=== PATIENT | male | born 1950 | race Caucasian/White ===

== ENCOUNTER 2020-09-25 15:40 | Emergency (ER) | payer MEDICARE, MEDICAID ==
[~2020-09-25] VITALS: Ht 175.3 cm; Wt 109.1 kg
--- NOTE | 2020-09-25 15:51 | NUR ---
PT BROUGHT BACK TO ROOM VIA WC. USES CANE FOR AMBULATION.
[2020-09-25 16:13] VITALS: BP 208/100
--- NOTE | 2020-09-25 16:14 | NUR ---
PT PRESENTS TO ED WITH C/O BP RELATED TO A MECHANICAL INJURY THAT HAPPENED 30 YEARS AGO. PT STATES THEY WERE TREATED AT [facility] 1 MONTH AGO, STATES THEY WERE GIVEN PAIN MEDICATION FOR "SLIPPED DIS". PT STATES PAIN IS SHOOTING WHEN LAYING DOWN. PT A&O, RESPS EVEN AND UNLABORED, VSS, NADN. CALL LIGHT IN REACH, NO COMPLAINTS AT THIS TIME. Addendum: 09/25/20 at 1622 by KEVIN PT PRESENTS TO ED WITH C/O BACK PAIN RELATED TO A MECHANICAL INJURY THAT HAPPENED 30 YEARS AGO. PT STATES THEY WERE TREATED AT [facility] 1 MONTH AGO, STATES THEY WERE GIVEN PAIN MEDICATION FOR "SLIPPED DISC". PT STATES PAIN IS "SHOOTING WHEN LAYING DOWN". PT A&O, RESPS EVEN AND UNLABORED, VSS, NADN. CALL LIGHT IN REACH, NO COMPLAINTS AT THIS TIME.
--- NOTE | 2020-09-25 16:30 | NUR ---
AIDA AHUMADA AT BEDSIDE FOR EVAL.
--- NOTE | 2020-09-25 16:52 | NUR ---
DISCHARGE INSTRUCTIONS REVIEWED, PT VERBALIZED UNDERSTANDING, AMBULATORY TO DISCHARGE WITH STEADY GAIT, NO COMPLAINTS AT TIME OF DISCHARGE.
== END 2020-09-25 16:55 | disposition home or self-care (01) ==
LOC: ED 16:48
DX: B02.9 Zoster without complications (principal); I10 Essential (primary) hypertension
CPT/HCPCS: 99283

== ENCOUNTER 2020-11-01 14:53 | Emergency (ER) | payer MEDICAID, MEDICARE ==
[~2020-11-01] VITALS: Ht 175.3 cm; Wt 102.3 kg
[~2020-11-01 14:53] MED LIST: ACYC-57 PO; ASPI81TA45 PO; ATOR-2 PO; CARV12.52 PO; LOSA100T14 PO; LOSA50TA2 PO; METF500T27 PO; NAPR-685 PO; NITR0.4T41 SL; TICA90TA PO
[2020-11-01] MEDS ORDERED: SODIUM CHLORIDE FLUSH 10ML SYR IVF ONE (15:30)
[2020-11-01] MEDS ORDERED: SODIUM CHLORIDE 0.9% 1,000ML IVBOLUS ONE (15:30)
[2020-11-01] MEDS ORDERED: PANTOPRAZOLE 40 MG IV IVPush ONE (15:30)
[2020-11-01] MEDS ORDERED: FAMOTIDINE 20 MG/2 ML IVPush ONE (15:30)
[2020-11-01] MEDS ORDERED: FAMOTIDINE 20 MG/2 ML ONE (15:46)
[2020-11-01] MEDS ORDERED: PANTOPRAZOLE 40 MG IV ONE (15:46)
[2020-11-01 15:56] LABS: BASOPHILS % (AUTO) 1 % (0-1); EOSINOPHILS % (AUTO) 3 % (1-7); LYMPHOCYTES % (AUTO) 22 % (22-44); MEAN CORPUSCULAR HGB CONC 34.5 g/dL (33.2-36.2); MEAN PLATELET VOLUME 7.4 fL (7.4-10.4); MONOCYTES % (AUTO) 9 % (2-9); NEUTROPHILS % (AUTO) 65 % (42-75); PLATELET COUNT 252 x10^3/uL (130-400); RED BLOOD COUNT 4.86 x10^6/uL (4.38-5.82); RED CELL DISTRIBUTION WIDTH 14.7 % (9.4-14.8)
[2020-11-01 15:58] LABS: INTERNATIONAL NORMALIZED RATIO 1.09 (0.93-1.1); PROTHROMBIN TIME 11.6 Seconds (9.6-11.5)
[2020-11-01 16:01] LABS: ALANINE AMINOTRANSFERASE 82 U/L (12-78); ALBUMIN 3.7 g/dL (3.4-5.0); ANION GAP 8 mmol/L (5-15); CALCIUM 9.4 mg/dL (8.5-10.1); CHLORIDE 107 mmol/L (98-107); CREATININE 1.29 mg/dL (0.7-1.3)
[2020-11-01 16:04] LABS: ALKALINE PHOSPHATASE 75 U/L (45-117); TOTAL PROTEIN 8.1 g/dL (6.4-8.2)
[2020-11-01 17:49] VITALS: BP 145/73
== END 2020-11-01 18:06 | disposition home or self-care (01) ==
LOC: ED 16:35
DX: K92.1 Melena (principal); I21.9 Acute myocardial infarction, unspecified; I10 Essential (primary) hypertension
CPT/HCPCS: 36415; 80053; 83605; 85025; 85610; 85730; 96361; 96374; 96375; 99284; C9113; J7030

== ENCOUNTER 2020-11-04 17:48 | Emergency (ER) | payer MEDICARE ==
[~2020-11-04] VITALS: Ht 175.3 cm; Wt 102.5 kg
[2020-11-04 18:24] LABS: BASOPHILS % (AUTO) 1 % (0-1); EOSINOPHILS % (AUTO) 4 % (1-7); LYMPHOCYTES % (AUTO) 24 % (22-44); MEAN CORPUSCULAR HEMOGLOBIN 29.8 pg (27.5-34.5); MEAN CORPUSCULAR HGB CONC 33.8 g/dL (33.2-36.2); MONOCYTES % (AUTO) 12 % (2-9); NEUTROPHILS % (AUTO) 60 % (42-75); PLATELET COUNT 218 x10^3/uL (130-400); RED BLOOD COUNT 4.59 x10^6/uL (4.38-5.82)
[2020-11-04 18:31] LABS: ALBUMIN 3.4 g/dL (3.4-5.0); ANION GAP 5 mmol/L (5-15); CHLORIDE 107 mmol/L (98-107)
[2020-11-04 18:36] LABS: ALANINE AMINOTRANSFERASE 70 U/L (12-78); ALKALINE PHOSPHATASE 67 U/L (45-117); BILIRUBIN,TOTAL 0.7 mg/dL (0.2-1.0); CREATININE 1.64 mg/dL (0.7-1.3); TOTAL PROTEIN 7.4 g/dL (6.4-8.2); TROPONIN I < 0.015 ng/mL (0.000-0.045)
[2020-11-04 22:28] VITALS: BP 172/82
--- NOTE | 2020-11-04 22:28 | NUR ---
Patient given discharge instructions and they have confirmed that they understand the instructions. Patient ambulatory with steady gait. NAD, all questions answered appropriately, denies additional needs at this time. No personal belongings left in room after discharge.
== END 2020-11-04 22:30 | disposition home or self-care (01) ==
LOC: ED 22:08
DX: R06.00 Dyspnea, unspecified (principal); I10 Essential (primary) hypertension; I25.2 Old myocardial infarction; G89.29 Other chronic pain; R94.31 Abnormal electrocardiogram [ECG] [EKG]
CPT/HCPCS: 36415; 71045; 80053; 83880; 84484; 85025; 93005; 99285